=== PATIENT | female | born 1955 | race Caucasian/White ===

== ENCOUNTER 2019-01-20 13:21 | Day surgery (SDC) | payer OTHER ==
[2019-01-20] MEDS ORDERED: LIDOCAINE 2% (SDV) 5 ML INJ (15:12)
[2019-01-20] MEDS ORDERED: PROPOFOL 20 ML (15:12)
[2019-01-20] MEDS ORDERED: FENTAnyl 50 MCG/ML VIAL (15:13)
[2019-01-20] MEDS ORDERED: MIDAZOLAM 1 MG/ML 2 ML INJ (15:13)
== END 2019-01-20 16:52 | disposition home or self-care (01) ==
LOC: GIL 13:21
DX: Z12.11 Encounter for screening for malignant neoplasm of colon (principal); D12.2 Benign neoplasm of ascending colon; I85.00 Esophageal varices without bleeding; K29.70 Gastritis, unspecified, without bleeding; I10 Essential (primary) hypertension
CPT/HCPCS: 43239; 88305; 88312